=== PATIENT | female | born 1940 | race Caucasian/White ===

== ENCOUNTER → 2016-10-19 | Day surgery (SDC) | payer MEDICARE ==
[~2016-10-19] MED LIST: ACTOS PO; AMLODIPINE BESYL5 MG PO; ASPIRIN81 M2 PO; ATORVASTATIN CA20 MG PO; COLESTID; DITROPAN-XL5 M1 PO; EFFEXOR XR150 MG PO; LASIX PO; LISINOPRIL PO; LOMOTIL WHITE2.5 M1; METFORMIN PO; METOPROLOL SUC200 MG PO; MOBIC PO; MULTI-VITAMIN1 EAC1 PO
--- NOTE | ~2016-10-19 | OR ---
Unit #: [id number] #: [id number] Patient: MAXIMO VALDES [id number] [address] [address] [id number] O MR#: [id number] NAME: MAXIMO VALDES ROOM: Date of Procedure: 10/19/2016 Admission Date: 10/19/2016 Surgeon: Brett Bartholomew M.D. : 1940 Attending Physician: Brett Bartholomew M.D. Referring Physician: Brett Bartholomew M.D. Primary Care Physician: Aryan Beckwith M.D. OPERATIVE REPORT PREOPERATIVE DIAGNOSES The patient presented with a history of watery diarrhea and fecal incontinence. PROCEDURE PERFORMED Colonoscopy and biopsies. POSTOPERATIVE DIAGNOSES The patient had mild sigmoid and descending colon diverticulosis. Otherwise, examination was normal up to cecum and terminal ileum. The quality of the prep was excellent. No polyps or mucosal abnormalities were seen. Multiple random colonic biopsies obtained from throughout the colon to rule out microscopic or collagenous colitis. RECOMMENDATIONS 1. The patient will be followed up in the office in 3 months. 2. Follow up results of biopsies. 3. Colestid 1 g p.o. b.i.d., the patient will skip a dose in case of any constipation. 4. Lomotil 2.5 mg p.o. p.r.n. diarrhea to be used on a sparingly basis. SEDATION USED MAC. DESCRIPTION OF PROCEDURE Following detailed explanation of the potential risks and complications of a colonoscopy, namely perforation, bleeding, and complications related to sedation, the patient was brought to GI lab and laid in the left lateral decubitus position. A digital rectal examination was performed, which was normal. Lubricated tip of the Olympus video colonoscope was inserted through the anus and advanced under direct vision. The scope was advanced and passed up to sigmoid into descending colon. Multiple medium-sized diverticula were noticed in this area. The scope tip was then navigated all the way up to cecum with visualization of the ileocecal valve and the appendiceal orifice. Preparation was excellent with good visualization and photodocumentation was obtained. Last several inches of the terminal ileum also visualized after intubation of the ileocecal valve and appeared normal. Successive segments of the colonic mucosa were examined upon withdrawal and appeared unremarkable. There being no polyps, mass lesions, or AVMs. Other than the diverticulosis seen in the left side, no other abnormalities noted. The patient did not have any hemorrhoids at anal verge. Multiple random colonic biopsies obtained from throughout the Unit #: [id number] #: [id number] Patient: MAXIMO VALDES colon to rule out microscopic or collagenous colitis. The scope was then withdrawn. The patient returned to recovery area. She tolerated the procedure without any postprocedure complications. Dictated by... Tolu Marcelo/dante TD: 10/20/2016 01:33 JOB #: [id number] CC: Pool Ward Jr., M.D. OPERATIVE REPORT X Brett Bartholomew MD X PROCEDURE OPERATIVE NOTE
== END | disposition home or self-care (01) ==
LOC: COPS 06:47
DX: K57.30 Diverticulosis of large intestine without perforation or abscess without bleeding (principal); R19.7 Diarrhea, unspecified; R15.9 Full incontinence of feces; M19.90 Unspecified osteoarthritis, unspecified site; E11.9 Type 2 diabetes mellitus without complications; E66.9 Obesity, unspecified; K21.9 Gastro-esophageal reflux disease without esophagitis; I10 Essential (primary) hypertension; Z96.622 Presence of left artificial elbow joint; Z98.41 Cataract extraction status, right eye; Z98.42 Cataract extraction status, left eye; Z88.2 Allergy status to sulfonamides; Z88.1 Allergy status to other antibiotic agents; Z79.899 Other long term (current) drug therapy; Z79.4 Long term (current) use of insulin
CPT/HCPCS: 82947; 88305

== ENCOUNTER 2016-11-26 15:25 | Emergency (ER) | payer MEDICARE ==
--- NOTE | ~2016-11-26 | CR141 ---
[facility]. [facility] A Service of [facility] RADIOLOGY TEXT RESULTS PATIENT: MAXIMO VALDES LOCATION: SED : 40 UNIT #: [id number] AGE: [address]: NITHIN HERNANDEZ SEX: F ORDER DR: [id number] [address] [address] [id number] E MR#: [id number] Acc #: [id number] NAME: MAXIMO VALDES : 1940 SEX: F STUDY DATE/TIME: 11/26/2016 15:29 UNIT: SED ROOM: STUDY DESCRIPTION: CR Hand Min 3 Views Lt Attending Physician: Nithin Hernandez Aprn Ordering Physician: Yahir Not Listed Primary Care Physician: Aryan Beckwith M.D. MEDICAL IMAGING REPORT This report is preliminary unless electronic signature is present. EXAM Left hand, 3 views, 11/26/2016. HISTORY Left hand pain and swelling beginning this morning status post fall onto left hand. FINDINGS 3 views of the left hand demonstrate comminuted, impacted fracture of the distal radius. The fracture line extends to the radiocarpal joint. There is also a fracture of the ulnar styloid process. No other fracture or dislocation is seen. Bones appear somewhat osteopenic. There is soft tissue swelling about the fractures. IMPRESSION 1. Comminuted impacted fracture of the distal radius. 2. Fracture of the ulnar styloid process. Dictated by... Benjamin Santos M.D. THIS IS AN ELECTRONICALLY VERIFIED REPORT Benjamin Santos M.D. at 11/27/2016 1:12 PM CAL/micheal TD: 11/26/2016 17:19 JOB #: [id number] MEDICAL IMAGING REPORT Page 1 of 1
--- NOTE | ~2016-11-26 | CR281 ---
[facility] A Service [facility] RADIOLOGY TEXT RESULTS PATIENT: MAXIMO VALDES LOCATION: SED : 40 UNIT #: [id number] AGE: [address]: NITHIN HERNANDEZ SEX: F ORDER DR: [id number] [address] [address] [id number] E MR#: [id number] Acc #: [id number] NAME: MAXIMO VALDES : 1940 SEX: F STUDY DATE/TIME: 11/26/2016 14:47 UNIT: SED ROOM: STUDY DESCRIPTION: CR Wrist Min 3 View Lt Attending Physician: Nithin Hernandez Aprn Ordering Physician: Yahir Not Listed Primary Care Physician: Aryan Beckwith M.D. MEDICAL IMAGING REPORT This report is preliminary unless electronic signature is present. EXAM Left wrist series, 11/26/2016. COMPARISON None HISTORY Left wrist swelling and pain since this morning. FINDINGS 3 views of the left wrist were obtained. There is a comminuted, mildly displaced fracture of the distal radius, which incudes the articulating surface of the radius with the radiocarpal joint. Possible involvement of the articulating surface of the distal radioulnar joint cannot be excluded, as the fracture line runs close. There is deformity of the ulnar styloid process, which could be related to a fracture of indeterminate age. It could also be chronic. Diffuse bony osteopenia is noted. Surrounding soft tissues do not demonstrate any focal significant abnormality or radiopaque foreign body. There is diffuse large body habitus. Dictated by... Yandel Elizabeth M.D. THIS IS AN ELECTRONICALLY VERIFIED REPORT Yandel Elizabeth M.D. at 11/28/2016 1:51 PM CPR/micheal TD: 11/26/2016 16:50 [facility] A Service [facility] RADIOLOGY TEXT RESULTS PATIENT: MAXIMO VALDES LOCATION: SED : 40 UNIT #: [id number] AGE: [address]: NITHIN HERNANDEZ SEX: F ORDER DR: JOB #: [id number] MEDICAL IMAGING REPORT Page 1 of 1
== END 2016-11-26 16:20 | disposition home or self-care (01) ==
LOC: SED 15:25
DX: S52.592A Other fractures of lower end of left radius, initial encounter for closed fracture (principal); S52.612A Displaced fracture of left ulna styloid process, initial encounter for closed fracture; I10 Essential (primary) hypertension; E11.9 Type 2 diabetes mellitus without complications; W19.XXXA Unspecified fall, initial encounter
CPT/HCPCS: 29125; 73110; 73130; 99283